=== PATIENT | male | born 1995 | race Caucasian/White ===

== ENCOUNTER → 2018-04-29 | Outpatient (CLI) | payer BC | LOC: COL.RAD 06:42 | DX: G43.109 Migraine with aura, not intractable, without status migrainosus (principal) ==

== ENCOUNTER → 2018-05-06 | Outpatient (CLI) | payer BC | LOC: COL.RAD 06:54 | DX: G93.0 Cerebral cysts (principal) | CPT/HCPCS: A9585 ==